=== PATIENT | female | born 1955 | race Caucasian/White ===

== ENCOUNTER 2021-06-12 09:45 | Inpatient (IN) ==
[2021-06-12 10:30] LABS: Basophils % 0.2 %; Eosinophils % 0.3 %; Hematocrit 38.2 % (35.3-44.9); Hemoglobin 12.3 g/dL (11.5-15.4); Lymphocytes # 2.5 K/mcL (0.6-4.6); Lymphocytes % 19.9 %; Mean Corpuscular HGB Conc 32.2 g/dL (31.6-35.5); Mean Corpuscular Hemoglobin 28.7 pg (28.0-33.3); Mean Platelet Volume 9.8 fL (9.4-12.4); Monocytes # 0.7 K/mcL (0.0-1.3); Monocytes % 5.9 %; Neutrophils # 9.2 K/mcL (1.6-8.9); Platelet Count 238 K/mcL (140-400); Red Blood Count 4.29 M/mcL (3.82-4.97); Red Cell Distribution Width 13.3 % (11.5-14.5); Segmented Neutrophils % 72.7 %; White Blood Count 12.6 K/mcL (4.3-11.1)
[2021-06-12 10:50] LABS: Blood Urea Nitrogen 17 mg/dL (8-23); Calcium 9.1 mg/dL (8.6-10.3); Carbon Dioxide 26 mEq/L (23-29); Chloride 103 mEq/L (98-107); Glucose 108 mg/dL (70-105); Osmolality,Calculated 282 (280-300); Sodium 135 mEq/L (136-145)
[2021-06-12 10:51] LABS: Troponin I < 0.03 ng/mL (< 0.04)
[2021-06-12] MEDS ORDERED: Isovue-370 500 ML BOTTLE IVP ONE (10:57)
[2021-06-12 11:29] LABS: BUN/Creatinine Ratio 16 (6-26); eGFR For African Americans > 60 (> 60); eGFR For Non-African Americans 51 (> 60)
[2021-06-12] MEDS ORDERED: Perflutren Lipid Microsphere 1.3 ML in 0.9 % Sodium Chloride 8.7 ML IVP PRN (14:14)
[2021-06-12] MEDS ORDERED: Naloxone 0.4 MG/ML INJ IVP PRN (15:50)
[2021-06-12] MEDS ORDERED: Acetaminophen 325 MG TABLET PO PRN (15:50)
[2021-06-12] MEDS ORDERED: Albuterol 2.5 MG/3 ML NEBULIZER IH PRN (15:54)
[2021-06-12] MEDS: methylPREDNISolone 125 MG/2 ML VIAL IVP SCH ×2 (16:13→23:08)
[2021-06-12] MEDS: Piperacillin/Tazobactam 3.375 GM in 0.9 % Sodium Chloride Mini Bag 100 ML IVPB SCH ×2 (16:14→23:12)
[2021-06-12] MEDS ORDERED: Lidocaine 1% 20 ML MDV ONE (17:19)
[2021-06-12] MEDS ORDERED: *HR* Rocuronium Bromide 50 MG/5 ML VIAL ONE (17:26)
[2021-06-12] MEDS ORDERED: *HR* Etomidate 20 MG/10 ML AMPUL IVP ONE (17:26)
[2021-06-12] MEDS ORDERED: *HR* FentaNYL (PF) 250 MCG/5 ML VIAL ONE (17:27)
[2021-06-12] MEDS ORDERED: *HR* Midazolam HCl 5 MG/5 ML VIAL IVP ONE (17:27)
[2021-06-12 18:30] LABS: INR 0.9
[2021-06-12 18:33] LABS: Activated Partial Thrombo Time 25.5 Seconds (26.0-36.0)
[2021-06-12] MEDS ORDERED: Ondansetron 4 MG/2 ML VIAL ONE (18:42)
[2021-06-12] MEDS ORDERED: ceFAZolin 2,000 MG in Water for inj. (sterile) 20 ML IVP ONE (18:51)
[2021-06-12] MEDS ORDERED: CeFAZolin Syr 2,000MG/20 ML 2,000 MG/20 ML SYRINGE IVPB ONE (19:15)
[2021-06-12] MEDS ORDERED: 0.9 % Sodium Chloride w KCl 20 MEQ/1,000 ML MLS IVC SCH (20:00)
[2021-06-12] MEDS ORDERED: Ketorolac 30 MG/ML VIAL IVP ONE (20:04)
[2021-06-12] MEDS: Ipratropium/Albuterol Neb 3 ML IH SCH ×3 (20:36→23:55)
[2021-06-12 22:11] LABS: Appearance of Pericardial Fl Cloudy (Clear)
[2021-06-13] MEDS: Ipratropium/Albuterol Neb 3 ML IH SCH ×6 (04:14→23:36)
[2021-06-13 04:37] LABS: Basophils % 0.1 %; Hematocrit 37.4 % (35.3-44.9); Immature Granulocytes % 0.9 % (0-4); Lymphocytes # 0.9 K/mcL (0.6-4.6); Lymphocytes % 5.8 %; Mean Corpuscular HGB Conc 32.1 g/dL (31.6-35.5); Mean Corpuscular Hemoglobin 28.9 pg (28.0-33.3); Mean Corpuscular Volume 90.1 fL (83.0-100.0); Mean Platelet Volume 9.7 fL (9.4-12.4); Monocytes # 0.5 K/mcL (0.0-1.3); Monocytes % 2.9 %; Neutrophils # 13.9 K/mcL (1.6-8.9); Platelet Count 240 K/mcL (140-400); Red Blood Count 4.15 M/mcL (3.82-4.97); Red Cell Distribution Width 13.2 % (11.5-14.5); Segmented Neutrophils % 90.3 %; White Blood Count 15.4 K/mcL (4.3-11.1)
[2021-06-13] MEDS: Ketorolac 30 MG/ML VIAL IVP SCH ×4 (05:10→17:37)
[2021-06-13 05:26] LABS: Albumin 3.3 g/dL (3.5-5.7); Albumin/Globulin Ratio 1.3 (1.1-2.2); Bilirubin,Indirect 0.3 mg/dL (0.0-1.0); Bilirubin,Total 0.3 mg/dL (0.3-1.0); Calcium 8.5 mg/dL (8.6-10.3); Globulin 2.5 g/dL (2.4-3.5); Phosphorous 4.9 mg/dL (2.7-4.5); Total Protein 5.8 g/dL (6.4-8.9)
[2021-06-13] MEDS: methylPREDNISolone 125 MG/2 ML VIAL IVP SCH ×2 (07:55→16:36)
[2021-06-13] MEDS: Piperacillin/Tazobactam 3.375 GM in 0.9 % Sodium Chloride Mini Bag 100 ML IVPB SCH ×2 (07:55→16:36)
[2021-06-13] MEDS ORDERED: Dextrose 4 GM Chewable Tablets PO PRN ×2 (10:07)
[2021-06-13] MEDS ORDERED: *HR* Dextrose 50 % in Water (Syg) 50 ML SYRINGE IVP PRN (10:07)
[2021-06-13] MEDS ORDERED: D5% in Water 1,000 ML IVC PRN (10:07)
[2021-06-13] MEDS: OLANZapine 5 MG TAB.RAPDIS PO SCH (12:12)
[2021-06-13] MEDS: Insulin LISPRO 300 UNITS/3 ML VIAL SUBQ SCH ×3 (12:12→20:34)
[2021-06-13] MEDS ORDERED: Benzonatate 100 MG CAPSULE PO PRN (13:50)
[2021-06-13] MEDS: *HR* Metformin 500 MG TABLET PO SCH (16:37)
[2021-06-13] MEDS: traZODone 50 MG TABLET PO SCH (20:30)
[2021-06-14] MEDS: methylPREDNISolone 125 MG/2 ML VIAL IVP SCH ×4 (01:16→23:30)
[2021-06-14] MEDS: Ketorolac 30 MG/ML VIAL IVP SCH ×5 (01:17→23:31)
[2021-06-14] MEDS: Piperacillin/Tazobactam 3.375 GM in 0.9 % Sodium Chloride Mini Bag 100 ML IVPB SCH ×4 (01:17→23:32)
[2021-06-14] MEDS: Ipratropium/Albuterol Neb 3 ML IH SCH ×6 (04:02→23:54)
[2021-06-14 08:03] LABS: Potassium 5.5 mEq/L (3.5-5.1)
[2021-06-14 08:08] LABS: Hematocrit 35.9 % (35.3-44.9); Hemoglobin 11.6 g/dL (11.5-15.4); Mean Corpuscular HGB Conc 32.3 g/dL (31.6-35.5); Mean Corpuscular Hemoglobin 28.5 pg (28.0-33.3); Mean Corpuscular Volume 88.2 fL (83.0-100.0); Mean Platelet Volume 9.8 fL (9.4-12.4); Platelet Count 235 K/mcL (140-400); Red Blood Count 4.07 M/mcL (3.82-4.97); Red Cell Distribution Width 13.2 % (11.5-14.5); White Blood Count 15.6 K/mcL (4.3-11.1)
[2021-06-14] MEDS: *HR* Metformin 500 MG TABLET PO SCH ×2 (08:22→16:44)
[2021-06-14] MEDS: OLANZapine 5 MG TAB.RAPDIS PO SCH ×2 (08:22→20:05)
[2021-06-14] MEDS: amLODIPine 5 MG TABLET PO SCH (08:22)
[2021-06-14] MEDS: Insulin LISPRO 300 UNITS/3 ML VIAL SUBQ SCH ×4 (08:26→19:40)
[2021-06-14] MEDS ORDERED: Calcium Gluconate 1gm/50mL 1 GM/50 ML BAG IVPB ONE (08:40)
[2021-06-14] MEDS ORDERED: Insulin Human Regular 10 UNIT in 0.9 % Sodium Chloride 10 ML IV ONE (08:40)
[2021-06-14] MEDS ORDERED: *HR* Dextrose 50 % in Water (Syg) 50 ML SYRINGE IVP ONE (08:40)
[2021-06-14] MEDS ORDERED: rOPINIRole 1 MG TABLET PO SCH (09:00)
[2021-06-14] MEDS ORDERED: OLANZapine 5 MG TAB.RAPDIS PO SCH (09:00)
[2021-06-14] MEDS: SODIUM ZIRCONIUM CYCLOSILICATE 5 GM POWD.PACK PO SCH (09:20)
[2021-06-14 13:31] LABS: Calcium 9.9 mg/dL (8.6-10.3); Potassium 5.2 mEq/L (3.5-5.1)
[2021-06-14] MEDS: traZODone 50 MG TABLET PO SCH (20:05)
[2021-06-14] MEDS: rOPINIRole 1 MG TABLET PO SCH (20:05)
[2021-06-15 01:32] LABS: Basophils % 0.2 %; Eosinophils % 0.1 %; Hematocrit 34.5 % (35.3-44.9); Hemoglobin 11.1 g/dL (11.5-15.4); Immature Granulocytes % 1.2 % (0-4); Mean Corpuscular HGB Conc 32.2 g/dL (31.6-35.5); Mean Corpuscular Hemoglobin 28.3 pg (28.0-33.3); Mean Platelet Volume 9.7 fL (9.4-12.4); Monocytes # 0.6 K/mcL (0.0-1.3); Monocytes % 4.1 %; Neutrophils # 12.9 K/mcL (1.6-8.9); Platelet Count 219 K/mcL (140-400); Red Blood Count 3.92 M/mcL (3.82-4.97); Red Cell Distribution Width 13.2 % (11.5-14.5); Segmented Neutrophils % 87.4 %; White Blood Count 14.8 K/mcL (4.3-11.1)
[2021-06-15 01:41] LABS: Calcium 9.3 mg/dL (8.6-10.3); Phosphorous 3.7 mg/dL (2.7-4.5); Potassium 5.5 mEq/L (3.5-5.1)
[2021-06-15] MEDS: Ipratropium/Albuterol Neb 3 ML IH SCH ×5 (03:43→20:38)
[2021-06-15] MEDS: Ketorolac 30 MG/ML VIAL IVP SCH (05:08)
[2021-06-15] MEDS ORDERED: *HR* Dextrose 50 % in Water (Syg) 50 ML SYRINGE IVP ONE (07:49)
[2021-06-15] MEDS ORDERED: Insulin Human Regular 10 UNIT in 0.9 % Sodium Chloride 10 ML IV ONE (07:49)
[2021-06-15] MEDS ORDERED: Calcium Gluconate 1gm/50mL 1 GM/50 ML BAG IVPB ONE (07:49)
[2021-06-15] MEDS: amLODIPine 5 MG TABLET PO SCH (08:21)
[2021-06-15] MEDS: *HR* Metformin 500 MG TABLET PO SCH (08:21)
[2021-06-15] MEDS: methylPREDNISolone 125 MG/2 ML VIAL IVP SCH (08:22)
[2021-06-15] MEDS: Piperacillin/Tazobactam 3.375 GM in 0.9 % Sodium Chloride Mini Bag 100 ML IVPB SCH ×2 (08:22→16:47)
[2021-06-15] MEDS: Insulin LISPRO 300 UNITS/3 ML VIAL SUBQ SCH ×4 (08:23→20:44)
[2021-06-15] MEDS: SODIUM ZIRCONIUM CYCLOSILICATE 5 GM POWD.PACK PO SCH (08:23)
[2021-06-15] MEDS: predniSONE 20 MG TABLET PO SCH (08:53)
[2021-06-15] MEDS ORDERED: 0.9 % Sodium Chloride 500 ML IVC ONE (10:04)
[2021-06-15] MEDS: 0.9 % Sodium Chloride 1,000 ML IVC SCH ×2 (10:57→20:42)
[2021-06-15 12:25] LABS: Calcium 9.3 mg/dL (8.6-10.3); Potassium 4.9 mEq/L (3.5-5.1)
[2021-06-15] MEDS: traZODone 50 MG TABLET PO SCH (20:43)
[2021-06-15] MEDS: OLANZapine 5 MG TAB.RAPDIS PO SCH (20:43)
[2021-06-15] MEDS: rOPINIRole 1 MG TABLET PO SCH (20:43)
[2021-06-16] MEDS: Piperacillin/Tazobactam 3.375 GM in 0.9 % Sodium Chloride Mini Bag 100 ML IVPB SCH ×2 (01:17→07:55)
[2021-06-16 02:04] LABS: Basophils % 0.2 %; Hematocrit 33.1 % (35.3-44.9); Hemoglobin 11.1 g/dL (11.5-15.4); Immature Granulocytes % 1.7 % (0-4); Lymphocytes # 2.6 K/mcL (0.6-4.6); Mean Corpuscular HGB Conc 33.5 g/dL (31.6-35.5); Mean Corpuscular Hemoglobin 29.4 pg (28.0-33.3); Mean Corpuscular Volume 87.6 fL (83.0-100.0); Mean Platelet Volume 9.9 fL (9.4-12.4); Monocytes # 1.1 K/mcL (0.0-1.3); Monocytes % 8.4 %; Neutrophils # 9.1 K/mcL (1.6-8.9); Platelet Count 232 K/mcL (140-400); Red Blood Count 3.78 M/mcL (3.82-4.97); Red Cell Distribution Width 13.2 % (11.5-14.5); Segmented Neutrophils % 69.7 %; White Blood Count 13.1 K/mcL (4.3-11.1)
[2021-06-16 02:17] LABS: Calcium 9.3 mg/dL (8.6-10.3); Magnesium 1.8 mg/dL (1.6-2.6); Phosphorous 3.6 mg/dL (2.7-4.5)
[2021-06-16] MEDS: Ipratropium/Albuterol Neb 3 ML IH SCH ×7 (04:29→23:49)
[2021-06-16] MEDS: predniSONE 20 MG TABLET PO SCH (07:55)
[2021-06-16] MEDS: amLODIPine 5 MG TABLET PO SCH (07:55)
[2021-06-16] MEDS: SODIUM ZIRCONIUM CYCLOSILICATE 5 GM POWD.PACK PO SCH (07:55)
[2021-06-16] MEDS: Insulin LISPRO 300 UNITS/3 ML VIAL SUBQ SCH ×5 (08:04→20:40)
[2021-06-16] MEDS: traZODone 50 MG TABLET PO SCH (19:27)
[2021-06-16] MEDS: rOPINIRole 1 MG TABLET PO SCH (19:27)
[2021-06-16] MEDS: OLANZapine 5 MG TAB.RAPDIS PO SCH (19:27)
[2021-06-17 01:50] LABS: Basophils % 0.3 %; Eosinophils # 0.1 K/mcL (0.0-0.6); Eosinophils % 0.6 %; Hematocrit 36.5 % (35.3-44.9); Hemoglobin 11.6 g/dL (11.5-15.4); Immature Granulocytes % 1.6 % (0-4); Lymphocytes # 2.9 K/mcL (0.6-4.6); Lymphocytes % 31.3 %; Mean Corpuscular HGB Conc 31.8 g/dL (31.6-35.5); Mean Corpuscular Hemoglobin 28.3 pg (28.0-33.3); Mean Platelet Volume 9.9 fL (9.4-12.4); Monocytes # 1.1 K/mcL (0.0-1.3); Monocytes % 11.4 %; Neutrophils # 5.1 K/mcL (1.6-8.9); Platelet Count 234 K/mcL (140-400); Red Cell Distribution Width 13.3 % (11.5-14.5); Segmented Neutrophils % 54.8 %; White Blood Count 9.4 K/mcL (4.3-11.1)
[2021-06-17 02:12] LABS: BUN/Creatinine Ratio 28 (6-26); Blood Urea Nitrogen 31 mg/dL (8-23); Calcium 9.7 mg/dL (8.6-10.3); Carbon Dioxide 29 mEq/L (23-29); Chloride 103 mEq/L (98-107); Glucose 100 mg/dL (70-105); Osmolality,Calculated 289 (280-300); Phosphorous 3.9 mg/dL (2.7-4.5); Potassium 4.6 mEq/L (3.5-5.1); Sodium 136 mEq/L (136-145); eGFR For African Americans > 60 (> 60); eGFR For Non-African Americans 50 (> 60)
[2021-06-17] MEDS: Ipratropium/Albuterol Neb 3 ML IH SCH ×3 (04:17→11:17)
[2021-06-17] MEDS: amLODIPine 5 MG TABLET PO SCH (08:05)
[2021-06-17] MEDS: Insulin LISPRO 300 UNITS/3 ML VIAL SUBQ SCH (08:07)
[2021-06-17 10:23] VITALS: O2SAT 98
[2021-06-17 11:14] VITALS: BP 159/76; PULSE 100; TEMP 98.1
== END 2021-06-17 12:21 | disposition home or self-care (01) | DRG 270 ==
LOC: ICNU 09:45 → EMEROOARM 09:45 → ICNU 16:42 → SUATTDRO 17:09 → 2NNU 06-13 14:30
PROVIDERS: ADMIT Pediatrics; ATTEND Internal Medicine

== ENCOUNTER 2021-06-28 11:02 | Observation (INO) ==
[2021-06-28 12:10] LABS: Basophils % 0.1 %; Eosinophils # 0.1 K/mcL (0.0-0.6); Eosinophils % 0.9 %; Hematocrit 33.9 % (35.3-44.9); Hemoglobin 10.8 g/dL (11.5-15.4); Immature Granulocytes % 0.6 % (0-4); Lymphocytes # 3.5 K/mcL (0.6-4.6); Lymphocytes % 32.9 %; Mean Corpuscular HGB Conc 31.9 g/dL (31.6-35.5); Mean Corpuscular Hemoglobin 28.1 pg (28.0-33.3); Mean Corpuscular Volume 88.3 fL (83.0-100.0); Mean Platelet Volume 9.3 fL (9.4-12.4); Monocytes # 1.1 K/mcL (0.0-1.3); Monocytes % 10.3 %; Neutrophils # 5.8 K/mcL (1.6-8.9); Platelet Count 189 K/mcL (140-400); Red Blood Count 3.84 M/mcL (3.82-4.97); Red Cell Distribution Width 13.6 % (11.5-14.5); Segmented Neutrophils % 55.2 %; White Blood Count 10.6 K/mcL (4.3-11.1)
[2021-06-28 12:18] LABS: INR 0.8; Prothrombin Time 9.2 Seconds (9.4-12.1)
[2021-06-28 12:20] LABS: Activated Partial Thrombo Time 26.5 Seconds (26.0-36.0)
[2021-06-28 12:31] LABS: BUN/Creatinine Ratio 17 (6-26); Blood Urea Nitrogen 15 mg/dL (8-23); Calcium 8.5 mg/dL (8.6-10.3); Carbon Dioxide 28 mEq/L (23-29); Chloride 105 mEq/L (98-107); Glucose 80 mg/dL (70-105); Osmolality,Calculated 288 (280-300); Potassium 4.2 mEq/L (3.5-5.1); Sodium 139 mEq/L (136-145); eGFR For African Americans > 60 (> 60); eGFR For Non-African Americans > 60 (> 60)
[2021-06-28] MEDS ORDERED: Isovue-370 500 ML BOTTLE IVP ONE (12:33)
[2021-06-28 12:35] LABS: Troponin I 0.07 ng/mL (< 0.04)
[2021-06-28 13:44] LABS: Influenza A PCR Negative (Negative); Influenza B PCR Negative (Negative); Resp. Syncytial Virus PCR Negative (Negative)
[2021-06-28 13:45] LABS: SARS-CoV-2 by PCR (In House) Negative (Negative)
[2021-06-28] MEDS ORDERED: Aspirin 81 MG TAB.CHEW PO STA (15:14)
[2021-06-28] MEDS ORDERED: Ondansetron 4 MG/2 ML VIAL IVP PRN (16:25)
[2021-06-28] MEDS ORDERED: Naloxone 0.4 MG/ML INJ IVP PRN (16:25)
[2021-06-28] MEDS ORDERED: Acetaminophen 325 MG TABLET PO PRN (16:25)
[2021-06-28 17:11] LABS: Amphetamine Screen,Urine Negative ng/mL (Cutoff=1000); Barbiturate Screen,Urine Negative ng/mL (Cutoff=200); Benzodiazepines Screen,Urine Negative ng/mL (Cutoff=200); Cannabinoid Screen,Urine Negative ng/mL (Cutoff = 50); Cocaine Screen,Urine Negative ng/mL (Cutoff= 300); Opiate Screen,Urine Negative ng/mL (Cutoff=300); Phencyclidine Screen,Urine Negative ng/mL (Cutoff=25)
[2021-06-28] MEDS ORDERED: D5% in Water 1,000 ML IVC PRN (17:50)
[2021-06-28] MEDS ORDERED: *HR* Dextrose 50 % in Water (Syg) 50 ML SYRINGE IVP PRN (17:50)
[2021-06-28] MEDS ORDERED: Dextrose 4 GM Chewable Tablets PO PRN ×2 (17:50)
[2021-06-28] MEDS ORDERED: *HR* Heparin 5,000 UNIT/ML VIAL IVP PRN ×2 (17:51)
[2021-06-28] MEDS ORDERED: *HR* Heparin 5,000 UNIT/ML VIAL IVP ONE (17:51)
[2021-06-28] MEDS ORDERED: *HR* Labetalol 20 MG/4 ML SYRINGE IVP PRN (17:52)
[2021-06-28] MEDS ORDERED: Perflutren Lipid Microsphere 1.3 ML in 0.9 % Sodium Chloride 8.7 ML IVP PRN (18:00)
[2021-06-28] MEDS: amLODIPine 5 MG TABLET PO SCH (18:07)
[2021-06-28] MEDS: Heparin 25,000UNIT/250ML 1/2NS 25,000 UNIT/250 ML IV.SOLN IVC SCH (19:08)
[2021-06-28] MEDS: Insulin LISPRO 300 UNITS/3 ML VIAL SUBQ SCH (20:15)
[2021-06-28] MEDS: traZODone 50 MG TABLET PO SCH (20:16)
[2021-06-29 01:59] LABS: Basophils % 0.2 %; Eosinophils # 0.1 K/mcL (0.0-0.6); Eosinophils % 1.3 %; Hematocrit 36.7 % (35.3-44.9); Hemoglobin 11.5 g/dL (11.5-15.4); Immature Granulocytes % 0.4 % (0-4); Lymphocytes # 3.3 K/mcL (0.6-4.6); Lymphocytes % 35.7 %; Mean Corpuscular HGB Conc 31.3 g/dL (31.6-35.5); Mean Corpuscular Hemoglobin 28.2 pg (28.0-33.3); Mean Platelet Volume 9.6 fL (9.4-12.4); Monocytes # 0.8 K/mcL (0.0-1.3); Monocytes % 8.2 %; Platelet Count 202 K/mcL (140-400); Red Blood Count 4.08 M/mcL (3.82-4.97); Red Cell Distribution Width 13.7 % (11.5-14.5); Segmented Neutrophils % 54.2 %; White Blood Count 9.3 K/mcL (4.3-11.1)
[2021-06-29 02:03] LABS: Estimated Average Glucose 137 mg/dl; Hemoglobin A1C 6.4 %
[2021-06-29 02:14] LABS: Calcium 8.9 mg/dL (8.6-10.3); Potassium 4.1 mEq/L (3.5-5.1)
[2021-06-29 02:16] LABS: Chol/HDL Ratio 2.4 (0-4.9)
[2021-06-29 02:20] LABS: Iron 75 mcg/dL (50-170)
[2021-06-29 02:39] LABS: Folate 9.2 ng/mL (3.0-16.0)
[2021-06-29 03:13] LABS: Ferritin 25 ng/mL (10-120)
[2021-06-29 03:15] LABS: % Iron Saturation 17 % (15-50); Transferrin 321 mg/dL (203-362)
[2021-06-29] MEDS: Insulin LISPRO 300 UNITS/3 ML VIAL SUBQ SCH ×4 (07:12→20:44)
[2021-06-29] MEDS: rOPINIRole 1 MG TABLET PO SCH (07:44)
[2021-06-29] MEDS: OLANZapine 10 MG TAB.RAPDIS PO SCH (07:45)
[2021-06-29] MEDS: Nicotine 14 MG PATCH.TD24 TD SCH (07:45)
[2021-06-29] MEDS: amLODIPine 5 MG TABLET PO SCH (07:45)
[2021-06-29] MEDS ORDERED: Ibuprofen 600 MG TABLET PO ONE (17:24)
[2021-06-29] MEDS: Heparin 25,000UNIT/250ML 1/2NS 25,000 UNIT/250 ML IV.SOLN IVC SCH (17:49)
[2021-06-29] MEDS: traZODone 50 MG TABLET PO SCH (19:52)
[2021-06-30] MEDS ORDERED: Regadenoson 0.4 MG/5 ML SYRINGE IVP ONE (06:47)
[2021-06-30] MEDS: Nicotine 14 MG PATCH.TD24 TD SCH (07:03)
[2021-06-30] MEDS: Insulin LISPRO 300 UNITS/3 ML VIAL SUBQ SCH ×2 (07:03→11:12)
[2021-06-30] MEDS: amLODIPine 5 MG TABLET PO SCH (08:49)
[2021-06-30] MEDS: rOPINIRole 1 MG TABLET PO SCH (08:49)
[2021-06-30] MEDS: OLANZapine 10 MG TAB.RAPDIS PO SCH (08:49)
[2021-06-30] MEDS ORDERED: Aspirin Enteric Coated 81 MG Tablet PO SCH (09:00)
[2021-06-30 10:48] LABS: Albumin 3.5 g/dL (3.5-5.7); Albumin/Globulin Ratio 1.5 (1.1-2.2); Bilirubin,Indirect 0.5 mg/dL (0.0-1.0); Bilirubin,Total 0.5 mg/dL (0.3-1.0); Globulin 2.4 g/dL (2.4-3.5); Total Protein 5.9 g/dL (6.4-8.9)
[2021-06-30 11:33] VITALS: BP 97/63; PULSE 82; TEMP 98.1; O2SAT 93
== END 2021-06-30 14:53 | disposition home or self-care (01) ==
LOC: 3BNU 11:02 → EMEROOARM 11:02 → SUATTDRO 16:36 → 3BNU 17:19
PROVIDERS: ADMIT Pharmacist; ATTEND Registered Nurse